=== PATIENT | male | born 1955 | race Caucasian/White ===

== ENCOUNTER 2020-03-06 09:18 | Emergency (ER) | payer OTHER ==
[~2020-03-06 09:18] MED LIST: NAPROSYN500 MG PO
[2020-03-06 10:30] LABS: HEMOGLOBIN 14.4 gm/dl (14.0-17.5); RED BLOOD COUNT 4.52 M/UL (4.20-5.50); WHITE BLOOD COUNT 16.1 K/UL (4.5-11.0)
[2020-03-06 10:45] LABS: BUN/CREATININE RATIO 15 (0-10)
[2020-06-02] MEDS ORDERED: LIPITOR TAB 2020 MG PO (08:24)
[2020-06-02] MEDS ORDERED: AMITRIPTYLINE H25 MG PO (08:24)
[2020-06-02] MEDS ORDERED: ZESTRIL10 MG PO (08:25)
[2020-06-02] MEDS ORDERED: NEURONTIN600 MG PO (08:25)
[2020-06-02] MEDS ORDERED: CLARITIN10 M2 PO (08:26)
[2020-06-02] MEDS ORDERED: OMEPRAZOLE MAGN20 M1 PO (08:26)
[2020-06-02] MEDS ORDERED: VITAMIN D21250 MCG PO (08:27)
== END 2020-03-06 12:39 | disposition home or self-care (01) ==
LOC: ER1 09:18
PROVIDERS: Physician Assistant
DX: R10.84 Generalized abdominal pain (principal); E87.6 Hypokalemia; E87.1 Hypo-osmolality and hyponatremia; D72.829 Elevated white blood cell count, unspecified; I10 Essential (primary) hypertension; E78.5 Hyperlipidemia, unspecified; F17.200 Nicotine dependence, unspecified, uncomplicated; Z79.899 Other long term (current) drug therapy; Z88.0 Allergy status to penicillin
CPT/HCPCS: 80053; 81001; 82150; 83690; 85025; 99284; J7030; Q9967

== ENCOUNTER → 2020-03-10 | Outpatient (CLI) | payer OTHER ==
[~2020-03-10] MED LIST changes: +AMITRIPTYLINE H25 MG PO; +CLARITIN10 M2 PO; +LIPITOR TAB 2020 MG PO; +NEURONTIN600 MG PO; +OMEPRAZOLE MAGN20 M1 PO; +VITAMIN D21250 MCG PO; +ZESTRIL10 MG PO
== END ==
LOC: KOH-I 08:17
DX: R10.84 Generalized abdominal pain (principal); K76.0 Fatty (change of) liver, not elsewhere classified; K80.20 Calculus of gallbladder without cholecystitis without obstruction
CPT/HCPCS: 76700

== ENCOUNTER → 2020-06-02 | Day surgery (SDC) | payer OTHER | END | disposition home or self-care (01) | LOC: OR 05-28 08:10 | DX: K63.5 Polyp of colon (principal); K29.50 Unspecified chronic gastritis without bleeding; K20.90 Esophagitis, unspecified without bleeding; K44.9 Diaphragmatic hernia without obstruction or gangrene; N40.0 Benign prostatic hyperplasia without lower urinary tract symptoms; J44.9 Chronic obstructive pulmonary disease, unspecified; E11.9 Type 2 diabetes mellitus without complications; I10 Essential (primary) hypertension; F17.210 Nicotine dependence, cigarettes, uncomplicated; F41.9 Anxiety disorder, unspecified; Z88.0 Allergy status to penicillin; Z79.899 Other long term (current) drug therapy | CPT/HCPCS: J2001; J2704; J7120 ==

== ENCOUNTER → 2020-07-15 | Outpatient (CLI) | payer OTHER | LOC: KOH-I 07-08 11:30 | DX: F17.210 Nicotine dependence, cigarettes, uncomplicated (principal); R91.8 Other nonspecific abnormal finding of lung field | CPT/HCPCS: 71271 ==